=== PATIENT | female | born 1955 | race Caucasian/White ===

== ENCOUNTER 2024-11-17 13:25 | Emergency (ER) | payer MEDICARE ==
[~2024-11-17] VITALS: Ht 154.9 cm; Wt 77.0 kg
[2024-11-17 13:38] VITALS: BP 167/67; PULSE 76; RESP 18; TEMP 97.5; O2SAT 99
[2024-11-17] MEDS: LIDOCAINE 1% 10 ML VIAL ID ONE (14:01)
[2024-11-17] MEDS: PERTUSS(ACELL),DIPH,TET/PF 0.5 ML SYRINGE [ADULT] IM. ONE (14:01)
== END 2024-11-17 15:15 | disposition home or self-care (01) ==
LOC: EMS 13:25
DX: S91.012A Laceration without foreign body, left ankle, initial encounter (principal); K21.9 Gastro-esophageal reflux disease without esophagitis; Z96.659 Presence of unspecified artificial knee joint; Z88.6 Allergy status to analgesic agent; V89.9XXA Person injured in unspecified vehicle accident, initial encounter; Y93.89 Activity, other specified; Y92.89 Other specified places as the place of occurrence of the external cause; Y99.8 Other external cause status
CPT/HCPCS: 99283; 90715; 90471; 12002; J3490